=== PATIENT | female | born 1950 | race Caucasian/White ===

== ENCOUNTER 2016-10-08 19:34 | Emergency (ER) | payer MEDICARE, OTHER ==
[~2016-10-08 19:34] MED LIST: ASAB PO; B121000P IM; BYETTA SC; CRESTOR10 PO; GLUCOPHAGE1000 MG PO; HCTZ25B PO; KAPIDEX60 MG PO; LOP25 PO; MICARDIS40 PO; NITROSTAT0.4 MG SL; PLAVIX PO; PROVHFA INH
== END 2016-10-08 19:45 | disposition home or self-care (01) ==
LOC: ER 19:34
DX: S60.351A Superficial foreign body of right thumb, initial encounter (principal); I10 Essential (primary) hypertension; Z98.61 Coronary angioplasty status; E11.9 Type 2 diabetes mellitus without complications; F17.200 Nicotine dependence, unspecified, uncomplicated; Z88.6 Allergy status to analgesic agent; Z88.0 Allergy status to penicillin; Z79.899 Other long term (current) drug therapy; Z79.82 Long term (current) use of aspirin; W45.8XXA Other foreign body or object entering through skin, initial encounter
CPT/HCPCS: 73140-RT; 99284; A9270-GY